=== PATIENT | male | born 1950 | race Caucasian/White ===

== ENCOUNTER 2017-02-07 18:01 | Emergency (ER) | payer MEDICARE, BC ==
--- NOTE | 2017-02-07 18:35 | Emergency Department Record ---
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 No hematuria, no blood in the stools, no nausea or vomiting. No back pain. He has mild bruising to the left inner leg as well. No head injury. MD Complaint: Abdominal Pain Onset/Timin -: Days(s) History of Same: No Quality: Aching Consistency: Constant Improves with: Nothing Associated Symptoms: Denies other symptoms - Related Data Home Medications Medication Instructions Recorded Confirmed Last Taken Lisinopril/Hydrochlorothiazide 1 each PO DAILY 02/07/17 02/07/17 02/06/17 [Lisinopril-Hctz 10-12.5 mg Tab] Allergies Allergy/AdvReac Type Severity Reaction Status Date / Time No Known Drug Allergies Allergy Verified 02/07/17 18:24 Travel Screening - Travel/Exposure Within Last 30 Days Have you traveled within the last 30 days?: No - Travel/Exposure Within Last Year Have you traveled outside the [place] in the last year?: No - Additonal Travel Details Have you been exposed to anyone with a communicable illness?: No - Travel Symptoms Symptom Screening: None Review of Systems Constitutional: Denies: Chills, Fever, Malaise, Weakness Eyes: Denies: Eye discharge ENT: Denies: Congestion, Throat pain Respiratory: Denies: Cough Cardiovascular: Denies: Chest pain, Syncope Endocrine: Denies: Fatigue Gastrointestinal: Reports: As per HPI, Abdominal pain. Denies: Constipation, Diarrhea, Hematemesis, Hematochezia, Melena, Nausea, Vomiting Genitourinary: Denies: Dysuria, Frequency, Hematuria Musculoskeletal: Denies: Arthralgia, Back pain, Myalgia Skin: Reports: As per HPI, Bruising Neurological: Denies: Confusion, Headache, Numbness, Weakness Psychiatric: Denies: Anxiety Hematological/Lymphatic: Denies: Blood Clots, Easy bleeding, Easy bruising, Swollen glands Past Medical History - SOCIAL HISTORY Smoking Status: Never smoker Alcohol Use: Occasional Drug Use: None - RESPIRATORY Hx Respiratory Disorders: No - CARDIOVASCULAR Hx Cardio Disorders: Yes Hx Hypertension: Yes - NEURO Hx Neuro Disorders: No - GI Hx GI Disorders: Yes Hx Hiatal Hernia: Yes - Hx Genitourinary Disorders: No - ENDOCRINE Hx Endocrine Disorders: No - MUSCULOSKELETAL Hx Musculoskeletal Disorders: No - PSYCH Hx Psych Problems: No - HEMATOLOGY/ONCOLOGY Hx Hematology/Oncology Disorders: No Family Medical History Any Significant Family History?: No Hx Alcohol Use: Brother/Sister Physical Exam - General General Appearance: Alert, Oriented x3, Cooperative, No acute distress Limitations: No limitations - Head Head exam: Atraumatic, Normocephalic, Normal inspection Head exam detail: negative: Abrasion, Contusion, Hematoma - Eye Eye exam: Normal appearance, PERRL - ENT ENT exam: Normal exam, Mucous membranes moist Ear exam: Normal external inspection Nasal Exam: Normal inspection Mouth exam: Normal external inspection Teeth exam: Normal inspection - Neck Neck exam: Normal inspection, Full ROM. negative: Tenderness - Respiratory Respiratory exam: Normal lung sounds bilaterally. negative: Accessory muscle use, Decreased breath sounds, Respiratory distress, Rhonchi, Stridor, Wheezes - Cardiovascular Cardiovascular Exam: Regular rate, Normal rhythm, Normal heart sounds - GI/Abdominal GI/Abdominal exam: Soft, Tenderness. negative: Distended, Rebound, Rigid - Rectal Rectal exam: Deferred - exam: Deferred - Extremities Extremities exam: Full ROM, Normal capillary refill, Tenderness (medial distal thigh with bruising, full ROM). negative: Normal inspection - Back Back exam: Reports: Normal inspection, Full ROM. Denies: Muscle spasm, Rash noted, Tenderness - Neurological Neurological exam: Alert, Normal gait, Oriented X3 - Psychiatric Psychiatric exam: Normal affect, Normal mood - Skin Skin exam: Dry, Intact, Normal color, Warm Course Vital Signs 02/07/17 18:16 Temperature 97.9 F Pulse Rate 75 Respiratory 16 Rate Blood Pressure 160/97 Pulse Ox 96 - Reevaluation(s) Reevaluation #1: No acute changes on the labs 02/07/17 19:22 No acute changes on the CT scan DC home with instructions and reasons to return to the ED 02/07/17 20:11 Medical Decision Making - Lab Data Result diagrams: 02/07/17 18:47 02/07/17 18:47 Disposition Disposition: Discharge Clinical Impression: Abdominal wall contusion Qualifiers: Encounter type: initial encounter Qualified Code(s): S30.1XXA - Contusion of abdominal wall, initial encounter Disposition: Home, Self-Care Condition: (1) Good Instructions: Contusion in Adults (ED) Additional Instructions: return if you have any new pain, or concerns follow up with your doctor for a recheck and to review your full CT scan report Forms: Patient Portal Access Time of Disposition: 20:10 Quality - Quality Measures Quality Measures: N/A - Blood Pressure Screening Does Patient Have Any of the Following: No Blood Pressure Classification: Hypertensive Reading Systolic Measurement: 160 Diastolic Measurement: 97 Screening for High Blood Pressure: < Pre-Hypertensive BP, F/U Documented > [ [id number]] Pre-Hypertensive Follow-up Interventions: Referral to alternative/primary care provider.
[2017-02-07 18:51] LABS: BASO % 0.4 % (0-6); EOS % 1.9 % (0-6); GRAN % 64.2 % (47-80); HEMATOCRIT 42.8 % (42.0-52.0); HEMOGLOBIN 14.6 gm/dl (14.0-18.0); LYMPH % 22.9 % (16-45); MEAN CELL VOLUME 94.3 fl (81-97); MEAN CORPUSCULAR HEMOGLOBIN 32.2 pg (27-33); MEAN CORPUSCULAR HGB CONC 34.1 g/dl (32-36); MEAN PLATELET VOLUME 10.2 fl (7.4-10.4); MONO % 10.6 % (0-9); PLATELET COUNT 251 K/uL (130-400); RED BLOOD COUNT 4.54 M/uL (4.40-5.70); RED CELL DISTRIBUTION WIDTH 12.6 % (11.5-14.5); WHITE BLOOD COUNT W/O DIFF 8.5 K/uL (4.2-12.2)
[2017-02-07 19:04] LABS: ANION GAP 6.2 (7-16); BLOOD UREA NITROGEN 19 mg/dL (9-20); CARBON DIOXIDE 27.8 mmol/L (22-30); CREATININE 1.2 mg/dL (0.66-1.25); EST GLOMERULAR FILTRATION RATE > 60 ml/min; GLUCOSE,RANDOM 110 mg/dL (70-110)
[2017-02-07 19:08] LABS: URINE APPEARANCE CLEAR; URINE BILIRUBIN NEGATIVE (NEGATIVE); URINE BLOOD NEGATIVE (NEGATIVE); URINE COLOR YELLOW; URINE GLUCOSE (UA) NEGATIVE (NEGATIVE); URINE KETONE NEGATIVE (NEGATIVE); URINE LEUKOCYTE ESTERASE NEGATIVE (NEGATIVE); URINE NITRITE NEGATIVE (NEGATIVE); URINE PROTEIN NEGATIVE (NEGATIVE)
--- NOTE | 2017-02-09 22:23 | CT SCAN REPORT ---
EXAM: CT SCAN ABDOMEN/PELVIS W CONTRAST HISTORY: RIGHT LOWER QUADRANT PAIN. TECHNIQUE: CT of the abdomen and pelvis performed following the IV administration of 100 mL of Omnipaque-300 contrast. Oral contrast also utilized. COMPARISON: None. FINDINGS: Limited evaluation of the lung bases shows scarring in each lung base. Osseous structures are grossly intact. Fatty infiltrative change to the liver is suspected. Scattered hypodensities about the liver consistent with multiple cysts. The largest is in the left hepatic lobe measuring 1.4 x 1.1 cm. The spleen, adrenal glands, and pancreas are grossly unremarkable. The gallbladder is present, contracted. Multiple nonobstructing renal calculi bilaterally. Kidneys are otherwise unremarkable. No evidence for bowel obstruction. Normal appendix. Sigmoid diverticulosis without CT evidence for diverticulitis. No free air or free fluid. Coarse calcification in the right lower quadrant may relate to calcified lymph node. IMPRESSION: 1. NEGATIVE FOR ACUTE INTRAABDOMINAL/PELVIC PROCESS. 2. NORMAL APPENDIX. 3. SIGMOID DIVERTICULOSIS WITHOUT CT EVIDENCE FOR DIVERTICULITIS. 4. MULTIPLE HEPATIC CYSTS. 5. PUNCTATE CALCIFICATIONS ASSOCIATED WITH THE KIDNEYS, LIKELY RELATING TO NONOBSTRUCTING RENAL CALCULI. JOB NUMBER: [id number] MTDD
== END 2017-02-07 20:18 | disposition home or self-care (01) ==
LOC: ER 18:01
DX: S30.1XXA Contusion of abdominal wall, initial encounter (principal); S70.12XA Contusion of left thigh, initial encounter; W22.8XXA Striking against or struck by other objects, initial encounter
CPT/HCPCS: 99283; 99284; 85025; 80048; 81003; 74177; Q9967